=== PATIENT | male | born 1970 | race Caucasian/White ===

== ENCOUNTER 2021-05-26 20:10 | Emergency (ER) | payer SELFPAY ==
[2021-05-26] MEDS ORDERED: HYDROmorphone 1 MG/ML Syringe IVPUSH ONE (20:18)
[2021-05-26] MEDS ORDERED: Sodium Chloride 0.9% 10 ML Syringe FLUSH PRN (20:18)
[2021-05-26] MEDS ORDERED: Ondansetron 4 MG/2 ML SDV IVPUSH ONE (20:18)
[2021-05-26] MEDS ORDERED: Sodium Chloride 0.9% 80 ML IV SCH (20:30)
[2021-05-26] MEDS ORDERED: Iopamidol 612 MG/ML 100 ML Bottle IV SCH (20:30)
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
[2021-05-26] MEDS ORDERED: HYDROmorphone 0.5 MG/0.5 ML Syringe IVPUSH ONE (21:10)
[2021-05-26] MEDS ORDERED: Methocarbamol 500 MG Tab PO ONE (21:27)
[2021-05-26 21:44] VITALS: BP 128/88; PULSE 78
[2021-05-26] MEDS ORDERED: Lidocaine 5% 700 MG Patch TRDERM ONE (22:00)
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
[2021-05-26] MEDS ORDERED: Ondansetron 4 MG Tab.DIS PO ONE (22:48)
== END 2021-05-26 22:55 | disposition home or self-care (01) ==
LOC: JP.ED 20:10
DX: S22.42XA Multiple fractures of ribs, left side, initial encounter for closed fracture (principal); W20.8XXA Other cause of strike by thrown, projected or falling object, initial encounter
CPT/HCPCS: 36415; 71260; 74177; 80053; 84484; 85025; 85610; 85730; 93005; 96374; 96375; 96376; 99284; A9270; J1170; J2405; Q9967